=== PATIENT | female | born 1990 | race Asian ===

== ENCOUNTER 2024-08-14 18:12 | Emergency (ER) | payer BC ==
[2024-08-14] MEDS ORDERED: Tranexamic Acid 1,000 MG/10 ML VIAL ONE (19:00)
== END 2024-08-14 19:59 | disposition home or self-care (01) ==
LOC: CSHERS 18:12
DX: S01.512A Laceration without foreign body of oral cavity, initial encounter (principal); X58.XXXA Exposure to other specified factors, initial encounter
CPT/HCPCS: 99282